=== PATIENT | female | born 1990 | race Caucasian/White ===

== ENCOUNTER 2021-08-16 17:22 | Inpatient (IN) | payer OTHER ==
[~2021-08-16] VITALS: Ht 170.2 cm; Wt 115.5 kg
[2021-08-16 18:02] LABS: Source, Urine Clean Catch
[2021-08-16 18:07] LABS: BASOPHILS ABSOLUTE AUTO 0.05 K/mm3 (0.00-0.23); BASOPHILS PERCENT AUTO 0 % (0-2); EOSINOPHILS ABSOLUTE AUTO 0.04 K/mm3 (0.00-0.68); EOSINOPHILS PERCENT AUTO 0 % (0-6); Hematocrit 35.7 % (33.0-51.0); IMMATURE GRAN ABSOLUTE AUTO 0.05 K/mm3 (0.00-0.10); IMMATURE GRAN PERCENT AUTO 0 % (0-1); LYMPHOCYTES ABSOLUTE AUTO 1.41 K/mm3 (0.84-5.20); LYMPHOCYTES PERCENT AUTO 11 % (21-46); MONOCYTES PERCENT AUTO 5 % (4-13); Mean Corpuscular HGB Conc 33.6 g/dL (31.5-36.5); Mean Corpuscular Volume 80 fL (80-100); Mean Platelet Volume 9.6 fL (9.1-12.4); NEUTROPHILS ABSOLUTE AUTO 10.98 K/mm3 (1.96-9.15); NEUTROPHILS PERCENT AUTO 83 % (41-73); Platelet Count 416 K/mm3 (150-400); RDW Standard Deviation 37.3 fL (35.1-46.3); Red Blood Cell Count 4.45 M/mm3 (3.80-5.20); White Blood Cell Count 13.23 K/mm3 (4.00-11.30)
[2021-08-16 18:21] LABS: Alanine Aminotransfer (ALT/SGP 53 U/L (12-78); Albumin, Blood 3.8 g/dL (3.4-5.0); Albumin/Globulin Ratio 0.8 (0.8-1.8); Alk Phos 75 U/L (50-136); Anion Gap 6 mmol/L (6-16); Aspartate Aminotrans (AST/SGOT 25 U/L (12-37); Bilirubin, Total 1.1 mg/dL (0.1-1.0); Blood Urea Nitrogen 8 mg/dL (8-24); Bun/Creatinine Ratio 16.3 (12.0-20.0); CO2, Blood 26 mmol/L (21-32); Calcium, Blood 9.5 mg/dL (8.5-10.1); Chloride, Blood 107 mmol/L (98-108); Creatinine, Blood 0.49 mg/dL (0.40-1.00); Globulin, Blood 4.6 g/dL (2.2-4.0); Glomerular Filtration Rate >60 (60-); Glucose, Blood 100 mg/dL (70-99); Potassium, Blood 3.8 mmol/L (3.5-5.5); Sodium, Blood 139 mmol/L (136-145); Total Protein, Blood 8.4 g/dL (6.4-8.2)
[2021-08-16 18:34] LABS: Bilirubin, Urine Neg (Neg); Blood, Urine 2+ (Neg); Color, Urine Yellow (P-Yellow); Glucose Qualitative, Urine Neg (Neg); Ketones, Urine 2+ (Neg); Leukocyte Esterase, Urine 1+ (Neg); Nitrite, Urine Neg (Neg); Protein, Urine 3+ (Neg); Urobilinogen, Urine NORM (Normal); pH, Urine 6.5 (5.0-8.0)
[2021-08-16 18:40] LABS: Appearance, Urine Hazy (Clear)
[2021-08-16 18:42] LABS: Hyaline Casts 0-2 /lpf (0-2)
[2021-08-16 18:43] LABS: Bacteria Many /hpf; Mucus Light (0-Heavy); Red Blood Cells, Urine 0-2 /hpf (0-2); Squamous Epithelial Cells Mod /hpf (Few)
[2021-08-16] MEDS ORDERED: ESCI10 PO (19:15)
[2021-08-16] MEDS ORDERED: ALPRAZOLAM PO (19:15)
--- NOTE | 2021-08-16 23:00 | NUR ---
RECEIVED REPORT FROM ED RN, [place]. PT ARRIVED TO RM 334 VIA W/C WITH MOM BY SIDE. A/O. ON RA. INDEPENDENT. MOM LEFT SOON PT WAS SETTLED INTO BED. NO ABD PAIN, NAUSEA NOTED WHEN PT ARRIVED TO FLOOR. PT ORIENTED TO CALL LT SYSTEM. WILL CONTINUE TO PROVIDE CARE THE REST OF THE SHIFT. CALL LT IN REACH.
--- NOTE | 2021-08-17 01:27 | NUR ---
PT DENIES NAUSEA AFTER PAIN MED GIVEN. PAIN RESOLVED. CALL LT IN REACH.
--- NOTE | 2021-08-17 02:18 | NUR ---
PT RESTING QUIETLY. IVF INFUSING. CALL LT IN REACH.
--- NOTE | 2021-08-17 04:00 | NUR ---
PT RESTING QUIETLY, LYING ON STOMACH IN BED. CALL LT IN REACH.
--- NOTE | 2021-08-17 04:14 | NUR ---
SHIFT SUMMARY: ED ADMIT AT 2300. A/O. ON RA. SR AT 97. SINUS TACH IN LOW ONE HUNDREDS UPON ADMIT. MEDICATED ONCE WITH FENTANYL 25 MCG IV FOR MID ABDOMINAL PAIN WITH GOOD RESULTS. NO NAUSEA. PT AMBULATES INDEPENDENTLY IN . DIET CHANGED FROM NPO STATUS TO ADV DIET TOLERATED. NO ACUTE CHANGES. WILL CONTINUE PROVIDE CARE UNTIL SHIFT REPORT TO ONCOMING NURSE. CALL LT IN REACH.
[2021-08-17 06:15] LABS: BASOPHILS ABSOLUTE AUTO 0.05 K/mm3 (0.00-0.23); BASOPHILS PERCENT AUTO 0 % (0-2); EOSINOPHILS ABSOLUTE AUTO 0.06 K/mm3 (0.00-0.68); EOSINOPHILS PERCENT AUTO 1 % (0-6); Hematocrit 31.9 % (33.0-51.0); Hemoglobin 10.5 g/dL (11.5-16.0); IMMATURE GRAN ABSOLUTE AUTO 0.06 K/mm3 (0.00-0.10); IMMATURE GRAN PERCENT AUTO 1 % (0-1); LYMPHOCYTES ABSOLUTE AUTO 2.07 K/mm3 (0.84-5.20); LYMPHOCYTES PERCENT AUTO 18 % (21-46); MONOCYTES ABSOLUTE AUTO 0.86 K/mm3 (0.16-1.47); MONOCYTES PERCENT AUTO 7 % (4-13); Mean Corpuscular HGB 26.6 pg (26.0-34.0); Mean Corpuscular HGB Conc 32.9 g/dL (31.5-36.5); Mean Corpuscular Volume 81 fL (80-100); Mean Platelet Volume 9.6 fL (9.1-12.4); NEUTROPHILS ABSOLUTE AUTO 8.66 K/mm3 (1.96-9.15); NEUTROPHILS PERCENT AUTO 74 % (41-73); Platelet Count 393 K/mm3 (150-400); RDW Standard Deviation 38.1 fL (35.1-46.3); Red Blood Cell Count 3.95 M/mm3 (3.80-5.20); White Blood Cell Count 11.76 K/mm3 (4.00-11.30)
[2021-08-17 06:28] LABS: Alanine Aminotransfer (ALT/SGP 39 U/L (12-78); Albumin, Blood 3.2 g/dL (3.4-5.0); Albumin/Globulin Ratio 0.8 (0.8-1.8); Alk Phos 64 U/L (50-136); Anion Gap 5 mmol/L (6-16); Aspartate Aminotrans (AST/SGOT 15 U/L (12-37); Bilirubin, Total 1.1 mg/dL (0.1-1.0); Blood Urea Nitrogen 7 mg/dL (8-24); Bun/Creatinine Ratio 14.5 (12.0-20.0); CO2, Blood 25 mmol/L (21-32); Calcium, Blood 8.6 mg/dL (8.5-10.1); Chloride, Blood 108 mmol/L (98-108); Creatinine, Blood 0.48 mg/dL (0.40-1.00); Globulin, Blood 4.1 g/dL (2.2-4.0); Glomerular Filtration Rate >60 (60-); Glucose, Blood 97 mg/dL (70-99); Potassium, Blood 3.6 mmol/L (3.5-5.5); Sodium, Blood 138 mmol/L (136-145); Total Protein, Blood 7.3 g/dL (6.4-8.2)
[2021-08-17 14:52] LABS: International Normalized Ratio 1.07; Prothrombin Time Results 11.2 Sec (9.7-11.5)
--- NOTE | 2021-08-17 19:16 | NUR ---
pt had an MRI and liver biposy today, possibly will go home tomorrow. lots of family in to see her. has had some tearful anxiety today, offered chapdavid, she declined. started a 24 hr urine, no further changes this shift. call light in reach.
--- NOTE | 2021-08-18 08:13 | NUR ---
PT BIOPSY SITE WNL. THROUGHOUT THE NIGHT PATIENT C/O OF PAIN TO THE ABDOMEN WHCIH SHE REPORTED UNCHANGED. MEDICATED PER JUN. PT ALSO REQUESTING SOMETHING TO HELP HER SLEEP. MELATONIN GIVEN AND PATIENT ABLE TO SLEEP A COUPLE HOURS. 23 HOUR URINE BEING COLLECTED. HR AT THE START OF SHIFT ELEVATED [id number] HOWEVER DURING THIS TIME PATIENT UP AND IN PAIN.
[2021-08-18 11:57] LABS: Cancer Antigen 125 1.7 U/mL (1.5-35.0)
[2021-08-18 12:06] LABS: Cancer Antigen 19-9 <2.0 U/mL (2.0-37.0); Carcinoembryonic Antigen <0.2 ng/mL (0.0-3.0)
[2021-08-18] MEDS ORDERED: OXYC5 PO (12:07)
--- NOTE | 2021-08-18 13:49 | NUR ---
Supportive visit this afternoon. Pt sitting up in bed and reports a tolerable 1/10 pain. She reports feeling better today but does have some anxiety due to anticipation of treatment for her cancer. She reports plan to see Dr Villalobos Monday. Continued therapeutic listening as Pt is anxious to get home. Ended visit to allow Pt to rest. Spoke with Primary RN Madiha and discussed case.
--- NOTE | 2021-08-18 17:15 | NUR ---
PT DC'ED @ THIS TIME. PT PROVIDED W/ WRITTEN AND VERBAL DC DIRECTION, SPOUSE @ BEDSIDE. PT A&O X4 @ TIME OF DC. REFUSED ESCORT, SPOUSE ABLE TO AMBULATE W/ PT TO CURBSIDE. PT PAIN MEDICATED PRIOR TO DC, IV DC'ED, AND TELE DC'ED. HARD COPY PROVIDED TO SPOUSE.
== END 2021-08-18 17:13 | disposition home or self-care (01) | DRG 375 ==
LOC: ER 17:22 → MEDS 17:23
PROVIDERS: Emergency Medicine; Internal Medicine; Physician Assistant; ADMIT Internal Medicine
PROC: 0FB03ZX Excision of Liver, Percutaneous Approach, Diagnostic (ICD-10-PCS; principal; 2021-08-17)
DX: C48.1 Malignant neoplasm of specified parts of peritoneum (principal); C7B.02 Secondary carcinoid tumors of liver; E66.9 Obesity, unspecified; R00.0 Tachycardia, unspecified; Z68.37 Body mass index [BMI] 37.0-37.9, adult; Z79.899 Other long term (current) drug therapy
CPT/HCPCS: 36415; 47000; 71260; 74018; 74177; 74183; 76942; 80053; 81001; 81025; 82378; 83615; 83690; 85025; 85610; 85730; 86301; 86304; 87086; 88307; 88341; 88342; 93005; 93010; 96374-59; 96375; 96376; 99285-25; A9270; A9581; G0378; J1885; J2405; J3010; J7030; Q9967

== ENCOUNTER 2022-03-02 13:11 | Emergency (ER) | payer OTHER ==
[~2022-03-02] VITALS: Ht 170.2 cm; Wt 108.9 kg
[~2022-03-02 13:11] MED LIST: ALPRAZOLAM PO; ESCI10 PO; OXYC5 PO
[2022-03-02 14:05] LABS: BASOPHILS ABSOLUTE AUTO 0.06 K/mm3 (0.00-0.23); BASOPHILS PERCENT AUTO 1 % (0-2); EOSINOPHILS ABSOLUTE AUTO 0.05 K/mm3 (0.00-0.68); EOSINOPHILS PERCENT AUTO 1 % (0-6); Hematocrit 30.2 % (33.0-51.0); Hemoglobin 9.9 g/dL (11.5-16.0); IMMATURE GRAN ABSOLUTE AUTO 0.04 K/mm3 (0.00-0.10); IMMATURE GRAN PERCENT AUTO 0 % (0-1); LYMPHOCYTES ABSOLUTE AUTO 1.64 K/mm3 (0.84-5.20); LYMPHOCYTES PERCENT AUTO 16 % (21-46); MONOCYTES ABSOLUTE AUTO 0.66 K/mm3 (0.16-1.47); MONOCYTES PERCENT AUTO 6 % (4-13); Mean Corpuscular HGB 25.6 pg (26.0-34.0); Mean Corpuscular HGB Conc 32.8 g/dL (31.5-36.5); Mean Corpuscular Volume 78 fL (80-100); NEUTROPHILS ABSOLUTE AUTO 7.98 K/mm3 (1.96-9.15); NEUTROPHILS PERCENT AUTO 77 % (41-73); Platelet Count 658 K/mm3 (150-400); RDW Coefficient Variation 14.3 % (11.7-14.2); RDW Standard Deviation 40.4 fL (35.1-46.3); Red Blood Cell Count 3.87 M/mm3 (3.80-5.20); White Blood Cell Count 10.43 K/mm3 (4.00-11.30)
[2022-03-02 14:23] LABS: Albumin, Blood 3.1 g/dL (3.4-5.0); Albumin/Globulin Ratio 0.6 (0.8-1.8); Bilirubin, Total 0.9 mg/dL (0.1-1.0); Calcium, Blood 9.1 mg/dL (8.5-10.1); Creatinine, Blood 0.67 mg/dL (0.40-1.00); Globulin, Blood 4.9 g/dL (2.2-4.0); Potassium, Blood 3.3 mmol/L (3.5-5.5)
[2022-03-02 14:54] LABS: Source, Urine Clean Catch
[2022-03-02 15:03] LABS: Appearance, Urine Clear (Clear); Bilirubin, Urine Neg (Neg); Blood, Urine 1+ (Neg); Color, Urine Amber (P-Yellow); Glucose Qualitative, Urine Neg (Neg); Ketones, Urine 1+ (Neg); Leukocyte Esterase, Urine 2+ (Neg); Nitrite, Urine Neg (Neg); Protein, Urine 2+ (Neg); Specific Gravity, Urine 1.015 (1.003-1.022); Urobilinogen, Urine 1+ (Normal)
[2022-03-02 15:10] LABS: Red Blood Cells, Urine 0-2 /hpf (0-2)
[2022-03-02 15:11] LABS: Bacteria Many /hpf; Mucus Mod (0-Heavy); Squamous Epithelial Cells Few /hpf (Few)
[2022-03-02] MEDS ORDERED: PROM25 PO (16:52)
[2022-03-02] MEDS ORDERED: CEFD300 PO (17:41)
== END 2022-03-02 18:36 | disposition home or self-care (01) ==
LOC: ER 13:11
PROVIDERS: Physician Assistant
DX: R11.0 Nausea (principal)
CPT/HCPCS: 36415; 80053; 81001; 81025; 83690; 85025; A9270; J2405; J2550; J7030

== ENCOUNTER → 2022-03-28 | Outpatient (CLI) | payer OTHER ==
[~2022-03-28] MED LIST changes: +CEFD300 PO; +PROM25 PO
[2022-03-28 13:21] LABS: Source, Urine Voided
[2022-03-28 16:12] LABS: Appearance, Urine Hazy (Clear); Bilirubin, Urine Neg (Neg); Blood, Urine 5+ (Neg); Color, Urine Amber (P-Yellow); Glucose Qualitative, Urine Neg (Neg); Ketones, Urine 1+ (Neg); Leukocyte Esterase, Urine 3+ (Neg); Nitrite, Urine Neg (Neg); Protein, Urine 3+ (Neg); Specific Gravity, Urine 1.015 (1.003-1.022); Urobilinogen, Urine NORM (Normal)
[2022-03-28 17:05] LABS: Amorphous Mod (0-Heavy); Bacteria Many /hpf; Mucus Light (0-Heavy); Squamous Epithelial Cells Many /hpf (Few); White Blood Cells, Urine 25-50 /hpf (0-5)
== END | disposition home or self-care (01) ==
LOC: LAB SHORT 13:18 → LAB 13:18
PROVIDERS: Family Medicine
DX: R31.9 Hematuria, unspecified (principal)
CPT/HCPCS: 81001; 87086

== ENCOUNTER → 2022-04-01 | Outpatient (CLI) | payer OTHER ==
[2022-04-01 15:43] LABS: Source, Urine Voided
[2022-04-01 18:43] LABS: Bacteria Many /hpf; Squamous Epithelial Cells Many /hpf (Few)
== END | disposition home or self-care (01) ==
LOC: LAB SHORT 07:59 → LAB 07:59
PROVIDERS: Family Medicine
DX: R31.29 Other microscopic hematuria (principal)
CPT/HCPCS: 81015

== ENCOUNTER 2022-05-09 10:38 | Day surgery (SDC) | payer OTHER ==
[~2022-05-09] VITALS: Ht 170.2 cm; Wt 98.4 kg
[2022-05-09] MEDS ORDERED: Vitamin D1000 UNI1 (11:01)
[2022-05-09] MEDS ORDERED: METO50ER (11:01)
[2022-05-09] MEDS ORDERED: ELIQUIS5 M2 (11:01)
--- NOTE | 2022-05-09 11:43 | NUR ---
05/09/22 1143 [address] Procedure canceled by doctor due to pt taking eliquis yesterday at 1999. MD explained at bedside, pt voiced understanding. Pt dressed and left facilty at 11:19.
== END 2022-05-09 11:27 | disposition home or self-care (01) ==
LOC: ORSCSDS 10:38
DX: R11.2 Nausea with vomiting, unspecified (principal); Z53.9 Procedure and treatment not carried out, unspecified reason
CPT/HCPCS: J2704; J7120

== ENCOUNTER 2022-06-10 09:30 | Day surgery (SDC) | payer OTHER ==
[~2022-06-10] VITALS: Ht 170.2 cm; Wt 96.2 kg
[~2022-06-10 09:30] MED LIST changes: +ELIQUIS5 M2; +METO50ER; +Vitamin D1000 UNI1
--- NOTE | 2022-06-10 10:35 | NUR ---
06/10/22 1035 TEO MISHRA VERSED 2MG IV [address] CAM FOR PT ANXIETY
--- NOTE | 2022-06-10 14:55 | NUR ---
06/10/22 [id number] TEO MISHRA RN RECIEVED REPORT AND FISNISHED DC PT. SBA TO CAR IN WC BY COLTON
== END 2022-06-10 12:05 | disposition home or self-care (01) ==
LOC: ORSCSDS 09:30
PROVIDERS: Student in an Organized Health Care Education/Training Program
PROC: 0DB68ZX Excision of Stomach, Via Natural or Artificial Opening Endoscopic, Diagnostic (ICD-10-PCS; principal; 2022-06-10 10:45)
PROC: 0DBE8ZX Excision of Large Intestine, Via Natural or Artificial Opening Endoscopic, Diagnostic (ICD-10-PCS; principal; 2022-06-10 10:45)
PROC: 0DBN8ZX Excision of Sigmoid Colon, Via Natural or Artificial Opening Endoscopic, Diagnostic (ICD-10-PCS; principal; 2022-06-10 10:45)
PROC: 0DB98ZX Excision of Duodenum, Via Natural or Artificial Opening Endoscopic, Diagnostic (ICD-10-PCS; principal; 2022-06-10 10:45)
PROC: 0DBB8ZX Excision of Ileum, Via Natural or Artificial Opening Endoscopic, Diagnostic (ICD-10-PCS; principal; 2022-06-10 10:45)
DX: R11.2 Nausea with vomiting, unspecified (principal); K31.A0 Gastric intestinal metaplasia, unspecified; K63.5 Polyp of colon; K57.30 Diverticulosis of large intestine without perforation or abscess without bleeding; K64.8 Other hemorrhoids; R19.7 Diarrhea, unspecified; C7A.8 Other malignant neuroendocrine tumors; Z79.899 Other long term (current) drug therapy
CPT/HCPCS: 88305; 88342; J2250; J2704; J7120

== ENCOUNTER → 2022-11-28 | Outpatient (CLI) | payer OTHER ==
[2022-11-28 14:28] LABS: BASOPHILS ABSOLUTE AUTO 0.04 K/mm3 (0.00-0.23); BASOPHILS PERCENT AUTO 0 % (0-2); EOSINOPHILS ABSOLUTE AUTO 0.04 K/mm3 (0.00-0.68); EOSINOPHILS PERCENT AUTO 0 % (0-6); Hematocrit 38.3 % (33.0-51.0); Hemoglobin 13.8 g/dL (11.5-16.0); IMMATURE GRAN ABSOLUTE AUTO 0.07 K/mm3 (0.00-0.10); IMMATURE GRAN PERCENT AUTO 1 % (0-1); LYMPHOCYTES ABSOLUTE AUTO 1.29 K/mm3 (0.84-5.20); LYMPHOCYTES PERCENT AUTO 9 % (21-46); MONOCYTES ABSOLUTE AUTO 0.72 K/mm3 (0.16-1.47); MONOCYTES PERCENT AUTO 5 % (4-13); Mean Corpuscular HGB 30.3 pg (26.0-34.0); Mean Corpuscular Volume 84 fL (80-100); NEUTROPHILS ABSOLUTE AUTO 12.94 K/mm3 (1.96-9.15); NEUTROPHILS PERCENT AUTO 86 % (41-73); Platelet Count 307 K/mm3 (150-400); RDW Coefficient Variation 12.5 % (11.7-14.2); RDW Standard Deviation 38.5 fL (35.1-46.3); Red Blood Cell Count 4.56 M/mm3 (3.80-5.20)
[2022-11-28 14:32] LABS: Albumin, Blood 4.2 g/dL (3.4-5.0); Albumin/Globulin Ratio 1.3 (0.8-1.8); Bilirubin, Total 2.7 mg/dL (0.1-1.0); Bun/Creatinine Ratio 14.9 (12.0-20.0); Creatinine, Blood 0.67 mg/dL (0.40-1.00); Globulin, Blood 3.3 g/dL (2.2-4.0); Potassium, Blood 3.5 mmol/L (3.5-5.5); Total Protein, Blood 7.5 g/dL (6.4-8.2)
== END ==
LOC: LAB 12:18 → LAB SHORT 12:18
PROVIDERS: Registered Nurse Oncology
DX: C7A.098 Malignant carcinoid tumors of other sites (principal); C78.7 Secondary malignant neoplasm of liver and intrahepatic bile duct; R10.9 Unspecified abdominal pain; G89.3 Neoplasm related pain (acute) (chronic)
CPT/HCPCS: 80053; 84703; 85025

== ENCOUNTER → 2023-02-19 | Outpatient (CLI) | payer OTHER | END | disposition home or self-care (01) | LOC: LAB 15:40 → LAB SHORT 15:40 | DX: R10.9 Unspecified abdominal pain (principal); Z87.442 Personal history of urinary calculi | CPT/HCPCS: 87086 ==

== ENCOUNTER → 2024-12-05 | Outpatient (CLI) | payer OTHER ==
[2024-12-05 19:29] LABS: Bacterial Vaginosis PCR Negative (NEGATIVE); Candida Group, PCR NOT DETECTED (NOT DETECT); Candida glabrata-krusei, PCR NOT DETECTED (NOT DETECT)
[2024-12-10 23:48] LABS: C. TRACHOMATIS BY TMA,THINPREP Negative (Negative); N. GONORRHOEAE BY TMA,THINPREP Negative (Negative)
== END ==
LOC: LAB SHORT 17:50 → LAB 17:50
PROVIDERS: Family Medicine
DX: Z01.419 Encounter for gynecological examination (general) (routine) without abnormal findings (principal)
CPT/HCPCS: 81515; 87491; 87591; 87624; G0145